=== PATIENT | female | born 1975 | race Caucasian/White ===

== ENCOUNTER → 2019-02-11 | Outpatient (CLI) | payer BC ==
--- NOTE | 2019-02-11 16:52 | RAD ---
PELVIS COMPLETE History: Left lower quadrant pain. Pelvic pain. Comparison: None. Technique: Grayscale and color Doppler imaging of the pelvis was performed using transabdominal technique. Findings: Prior hysterectomy. Right ovary measures 2.8 x 2.8 x 3.27 m. Normal Doppler flow. Left ovary measures 5.2 x 5.6 x 5.0 cm. Left ovarian cyst with thin septations measures 4.7 x 4.5 x 4.6 cm. IMPRESSION: 1. Left ovarian cyst with thin septations, may represent hemorrhagic cyst. Recommend follow-up to ensure resolution. Electronically signed by: Isaiah Hernandez DO (02/11/2019 4:49 PM) [facility]
== END | disposition home or self-care (01) ==
LOC: US 11:22
PROVIDERS: ATTEND Family Medicine
DX: N83.202 Unspecified ovarian cyst, left side (principal); R10.2 Pelvic and perineal pain; R10.32 Left lower quadrant pain
CPT/HCPCS: 76856

== ENCOUNTER → 2019-02-24 | Outpatient (CLI) | payer BC | END | disposition home or self-care (01) | LOC: LAB 11:34 | PROVIDERS: ATTEND Obstetrics & Gynecology | DX: N83.202 Unspecified ovarian cyst, left side (principal) | CPT/HCPCS: 36415; 86304 ==

== ENCOUNTER → 2019-02-24 | Outpatient (CLI) | payer BC ==
--- NOTE | 2019-02-24 15:48 | KCIC ---
Bilateral digital screening mammograms with 3-D tomosynthesis: Reason for examination: Routine screening. Comparison is made to previous study dated 10/31/2014. Bilateral mammograms in CC and oblique projections were obtained with 2-D imaging and 3-D tomosynthesis imaging on a Siemens Inspiration unit and reviewed on the workstation. Interpretation was made with the benefit of CAD. The skin and nipples show no abnormalities. No abnormal axillary lymph nodes are seen. The breast parenchyma shows scattered fatty and fibroglandular density. (Breast density: Category B.) There are small circumscribed nodules in the right breast which are unchanged. There are no new dominant masses, suspicious calcifications or architectural distortion. Impression: No evidence of malignancy. Recommend routine screening. BI-RAD Category 2: Benign. "Our facility is accredited by the [employer] Mammography Program." This patient's information has been entered into a reminder system for the patient to be notified with the results of her examination and a target date for the next mammogram. Electronically signed by: Morenita May MD (02/24/2019 3:46 PM) [id number]
== END | disposition home or self-care (01) ==
LOC: KCIC MAMMO 10:03
PROVIDERS: ATTEND Family Medicine
DX: Z12.31 Encounter for screening mammogram for malignant neoplasm of breast (principal); N63.10 Unspecified lump in the right breast, unspecified quadrant
CPT/HCPCS: 77063; 77067